=== PATIENT | female | born 1980 | race Caucasian/White ===

== ENCOUNTER 2017-07-09 16:22 | Emergency (ER) | payer OTHER ==
[~2017-07-09] VITALS: Ht 167.6 cm; Wt 57.5 kg
[~2017-07-09 16:22] MED LIST: HYDR-3498 PO; LORA-441 PO; METH500T8 PO
[2017-07-09 16:25] VITALS: Ht 167.6 cm; Wt 57.5 kg
[2017-07-09] MEDS ORDERED: ONDANSETRON 4 MG INJ IV STA (17:10)
[2017-07-09] MEDS ORDERED: morphine 4 MG/ML VIAL IV STA ×2 (17:10→20:51)
--- NOTE | 2017-07-09 17:48 | RADRPT ---
PROCEDURE: US Abdomen (right upper quadrant). CLINICAL INDICATION: Right upper quadrant abdomen pain. TECHNIQUE: Multiple real-time longitudinal and transverse images of the right upper quadrant of th e abdomen were acquired utilizing a curved array transducer. Images were reviewed on a high-resoluti on PACS workstation. COMPARISON: None FINDINGS: The liver is normal in size and normal in echogenicity. There is no focal hepatic lesion. Color Doppler and pulsed Doppler sonography demonstrate normal a ntegrade flow in the portal vein. The gallbladder is normal with no stones or wall thickening. There is no pericholecystic fluid tressa ection. The bile ducts are normal with the common bile duct measuring 3.5 mm in diameter. The visualized portions of the pancreas are unremarkable with obscuration of the tail of the pancrea s. No free fluid is present. The right kidney measures 9.8 x 4.9 x 4.8 cm. There is normal echogenicity of the right kidney. T here is no perinephric fluid collection. No hydronephrosis, mass, or calculus is seen. IMPRESSION: 1. Unremarkable right upper quadrant abdomen ultrasound. RPTAT: QQ .Smith Loza MD, Date Time Electronically viewed and signed by .Smith Loza MD, on 07/09/2017 17:48 .R/
[2017-07-09 17:58] LABS: BASOPHILS % 0.4 % (0.0-2.0); EOSINOPHILS # 0.1 10^3/ul (0.0-0.5); EOSINOPHILS % 0.7 % (0.0-7.0); HEMATOCRIT 39.7 % (37.0-47.0); HEMOGLOBIN 12.7 g/dl (12.0-16.0); LYMPHOCYTES # 1.2 10^3/ul (0.8-2.9); MEAN CORPUSCULAR HEMOGLOBIN 28.9 pg (29.0-33.0); MEAN CORPUSCULAR VOLUME 90.4 fl (82.0-101.0); MEAN PLATELET VOLUME 9.1 fl (7.4-10.4); MONOCYTE # 0.9 10^3/ul (0.3-0.9); MONOCYTES % 8.3 % (0.0-11.0); NEUTROPHIL # 8.6 10^3/ul (1.6-7.5); NEUTROPHILS % 79.3 % (39.0-77.0); PLATELET COUNT 379 10^3/UL (140-415); RED BLOOD COUNT 4.39 10^6/ul (4.20-5.40); RED CELL DISTRIBUTION WIDTH 14.6 % (11.5-14.5); WHITE BLOOD COUNT 10.9 10^3/ul (4.8-10.8)
[2017-07-09 18:07] LABS: ADD UMIC YES; UR ASCORBIC ACID NEGATIVE (NEGATIVE); UR BILIRUBIN (Dip) NEGATIVE (NEGATIVE); UR BLOOD (Dip) 2+ mg/dL (NEGATIVE); UR CLARITY CLOUDY (CLEAR); UR COLOR YELLOW (YELLOW); UR GLUCOSE (Dip) NEGATIVE (NEGATIVE); UR KETONES (Dip) NEGATIVE (NEGATIVE); UR LEUKOCYTE ESTERASE (Dip) 3+ Leu/ul (NEGATIVE); UR MUCUS FEW /HPF (NONE SEEN); UR NITRITE (Dip) NEGATIVE (NEGATIVE); UR RBC 64 /HPF (0-5); UR SPECIFIC GRAVITY (Dip) 1.025 (1.003-1.030); UR SQUAMOUS EPITHELIAL CELL FEW /HPF (FEW); UR TOTAL PROTEIN (Dip) 1+ mg/dl (NEGATIVE); UR UROBILINOGEN (Dip) NEGATIVE (NEGATIVE)
[2017-07-09 18:17] LABS: ALBUMIN 4.4 g/dl (3.3-4.9); ALBUMIN/GLOBULIN RATIO 1.18; BILIRUBIN,INDIRECT 0.2 mg/dl (0-1.1); BILIRUBIN,TOTAL 0.2 mg/dl (0.2-1.3); CALCIUM 8.7 mg/dl (8.4-10.2); CREATININE 0.59 mg/dl (0.44-1.00); POTASSIUM 5.5 mmol/L (3.5-5.1); TOTAL PROTEIN 8.1 g/dl (6.1-8.1)
[2017-07-09] MEDS ORDERED: SOD CHLORIDE 0.9% 1,000 ML IV ONE (18:33)
[2017-07-09 18:35] LABS: D-DIMER 1175.8 ng/ml (<460)
--- NOTE | 2017-07-09 18:42 | RADRPT ---
PROCEDURE: XR Chest. CLINICAL INDICATION: Abdominal pain. TECHNIQUE: Single frontal view. COMPARISON: None. FINDINGS: There is mild left basilar atelectasis. The lungs are otherwise clear. The heart size is normal. There is no pleural effusion. There is no pneumothorax. IMPRESSION: 1. Mild left basilar atelectasis. 2. Otherwise unremarkable chest radiograph. RPTAT: QQ .Smith Loza MD, MD Date Time Electronically viewed and signed by .Smith Loza MD, MD on 07/09/2017 18:42 .R/
[2017-07-09] MEDS ORDERED: CEFTRIAXONE 1 GM/50 ML (PMX) 50 ML IVPB ONE (19:00)
[2017-07-09] MEDS ORDERED: IOHEXOL 100 ML ONE (19:35)
[2017-07-09] MEDS ORDERED: SOD CHLORIDE 0.9% 100 ML ONE (19:35)
[2017-07-09] MEDS ORDERED: IOHEXOL 350MG/ML 50 ML BTL ONE (19:35)
--- NOTE | 2017-07-09 19:48 | ERD ---
ER Documentation Chief Complaint Chief Complaint Complains of right upper quadrant abdominal pain (CARMELLA CHANCE MD) HPI 77-year-old female presents with right upper quadrant abdominal pain sudden onset this morning. Denies any inciting event such as eating. She possibly felt warm but did not have a measured fever. She denies any vomiting. She denies any diarrhea. She also has dysuria. She denies any flank pain or lower abdominal pain. Patient is a history of kidney stones remotely but that pain was different. Denies any shortness of breath or leg swelling. (CARMELLA CHANCE MD) ROS All systems reviewed and are negative except as per history of present illness. (CARMELLA CHANCE MD) Medications Home Meds Active Scripts Docusate Sodium* (Colace*) 100 Mg Capsule, 100 MG PO BID, #60 CAP Prov:ARNULFO VELAZQUEZ PA-C 07/09/17 Magnesium Citrate* (Magnesium Citrate*) 296 Ml Solution, 296 ML PO ONCE, #1 BOTTLE Prov:ARNULFO VELAZQUEZ PA-C 07/09/17 Tramadol Hcl* (Ultram*) 50 Mg Tablet, 50 MG PO Q6H Y for PAIN, #15 TAB Prov:CARMELLA CHANCE MD 07/09/17 Ibuprofen* (Motrin*) 600 Mg Tab, 600 MG PO Q6H Y for PAIN, #15 TAB Prov:CARMELLA CHANCE MD 07/09/17 Cephalexin* (Cephalexin*) 500 Mg Capsule, 500 MG PO Q6 for 10 Days, #40 CAP Prov:CARMELLA CHANCE MD 07/09/17 Reported Medications Methocarbamol* (Methocarbamol*) 500 Mg Tablet, 500 MG PO BID, TAB 10/05/14 Hydrocodone Bit-Acetaminophen* ([place]*) 5-325 Mg Tab, 1 TAB PO Q4H, TAB 10/05/14 Lorazepam* (Ativan*) 0.5 Mg Tablet, 0.5 MG PO HS Y for SLEEP, TAB 10/05/14 Allergies Allergies: Coded Allergies: No Known Allergy (Unverified , 10/05/14) PMhx/Soc History of Surgery: No Anesthesia Reaction: No Hx Neurological Disorder: No Hx Respiratory Disorders: No Hx Cardiac Disorders: No Hx Psychiatric Problems: No Hx Miscellaneous Medical Probl: No Hx Alcohol Use: No Hx Substance Use: No Hx Tobacco Use: No (CARMELLA CHANCE MD) Physical Exam Vitals Vital Signs Date Time Temp Pulse Resp B/P Pulse Ox O2 Delivery O2 Flow Rate FiO2 07/09/17 20:54 98.3 93 17 118/71 99 Room Air 07/09/17 16:25 98.6 104 20 145/86 100 (ARNULFO VELAZQUEZ PA-C) Physical Exam Const: [] Alert, uncomfortable due to pain. Head: Atraumatic Eyes: Normal Conjunctiva ENT: Normal External Ears, Nose and Mouth. Neck: Full range of motion..~ No meningismus. Resp: Clear to auscultation bilaterally Cardio: Regular rate and rhythm, no murmurs Abd: Soft, mostly in the right upper quadrant abdomen. non distended. Normal bowel sounds no CVA tenderness. Skin: No petechiae or rashes Back: No midline or flank tenderness Ext: No cyanosis, or edema Neur: Awake and alert Psych: Normal Mood and Affect (CARMELLA CHANCE MD) Result Diagram: 07/09/17172907/09/17 1730 Results 24 hrs Laboratory Tests Test 07/09/17 17:30 07/09/17 17:32 07/09/17 18:05 White Blood Count 10.910^3/ul Red Blood Count 4.3910^6/ul Hemoglobin 12.7g/dl Hematocrit 39.7% Mean Corpuscular Volume 90.4fl Mean Corpuscular Hemoglobin 28.9pg Mean Corpuscular Hemoglobin Concent 32.0g/dl Red Cell Distribution Width 14.6% Platelet Count 64569^3/UL Mean Platelet Volume 9.1fl Neutrophils % 79.3% Lymphocytes % 11.0% Monocytes % 8.3% Eosinophils % 0.7% Basophils % 0.4% Nucleated Red Blood Cells % 0.0/100WBC Neutrophils # 8.610^3/ul Lymphocytes # 1.210^3/ul Monocytes # 0.910^3/ul Eosinophils # 0.110^3/ul Basophils # 0.010^3/ul Nucleated Red Blood Cells # 0.010^3/ul Sodium Level 137mmol/L Potassium Level 5.5mmol/L Chloride Level 100mmol/L Carbon Dioxide Level 23mmol/L Anion Gap 20 Blood Urea Nitrogen 10mg/dl Creatinine 0.59mg/dl Glucose Level 131mg/dl Calcium Level 8.7mg/dl Total Bilirubin 0.2mg/dl Direct Bilirubin 0.00mg/dl Indirect Bilirubin 0.2mg/dl Aspartate Amino Transf (AST/SGOT) 50IU/L Alanine Aminotransferase (ALT/SGPT) 22IU/L Alkaline Phosphatase 88IU/L Total Protein 8.1g/dl Albumin 4.4g/dl Globulin 3.70g/dl Albumin/Globulin Ratio 1.18 Lipase 45U/L Urine Color YELLOW Urine Clarity CLOUDY Urine pH 5.0 Urine Specific [place] 1.025 Urine Ketones NEGATIVEmg/dL Urine Nitrite NEGATIVEmg/dL Urine Bilirubin NEGATIVEmg/dL Urine Urobilinogen NEGATIVEmg/dL Urine Leukocyte Esterase 3+Kimberly/ul Urine Microscopic RBC 64/HPF Urine Microscopic WBC > 182/HPF Urine Squamous Epithelial Cells FEW/HPF Urine Mucus FEW/HPF Urine Hemoglobin 2+mg/dL Urine Glucose NEGATIVEmg/dL Urine Total Protein 1+mg/dl D-Dimer 1175.80ng/ml D-Dimer Comment Current Medications Medications (Trade) Dose Ordered Sig/Michael Route PRN Reason Start Time Stop Time Status Last Admin Dose Admin Morphine Sulfate (morphine) 4 mg ONCE STAT IV 07/09/17 17:10 07/09/17 17:12 DC 07/09/17 17:26 Ondansetron HCl 4 mg 4 mg ONCE STAT IV 07/09/17 17:10 07/09/17 17:12 DC 07/09/17 17:26 Ceftriaxone Sodium 50 ml @ 100 mls/hr ONCE ONCE IVPB 07/09/17 19:00 07/09/17 19:29 DC 07/09/17 18:50 Sodium Chloride (NS) 1,000 ml @ 0 mls/hr Q0M ONCE IV 07/09/17 18:33 07/09/17 18:38 DC 07/09/17 18:50 IV Flush 10 ml 10 ml STK-MED ONCE .ROUTE 07/09/17 19:35 07/09/17 19:36 DC 07/09/17 20:26 Sodium Chloride 100 ml @ ud STK-MED ONCE .ROUTE 07/09/17 19:35 07/09/17 19:36 DC 07/09/17 20:27 Iohexol (Omnipaque) 100 ml @ ud STK-MED ONCE .ROUTE 07/09/17 19:35 07/09/17 19:36 DC 07/09/17 20:27 Iohexol (Omnipaque 350mg/ ml) 50 ml STK-MED ONCE .ROUTE 07/09/17 19:35 07/09/17 19:36 DC 07/09/17 20:28 Morphine Sulfate (morphine) 4 mg ONCE STAT IV 07/09/17 20:51 07/09/17 20:52 DC 07/09/17 20:57 DIAGNOSTIC IMAGING REPORT Patient: TANJA GARCIA : 1980 Age: 37 Sex: F MR #: [id number] DOS: 07/09/17 1854 Ordering MD: CARMELLA CHANCE MD Location: [facility] Room/Bed: PROCEDURE: CT Chest with IV contrast. CLINICAL INDICATION: Shortness of breath TECHNIQUE: CT scan of the chest was performed on a multidetector scanner. The patient was scanned following the uncomplicated intravenous administration of 110 cc of [id number] contrast. 3D, coronal and sagittal reformatted images were obtained from the axial source images. Images were reviewed on a high-resolution PACS workstation. The total exam CTDlvol = 33 be mGy and DLP = 217 mGy-cm. One of the following 3 dose reduction techniques were used: Automated exposure control; adjustment of the mA and/or kV according to patient size; or use of iterative reconstruction technique. DICOM images are available. COMPARISON: Chest x-ray 07/09/2017 FINDINGS: No filling defects are identified within the pulmonary arteries to suggest pulmonary artery thrombosis. Thoracic aorta is normal caliber without aneurysm or dissection. There is no mediastinal or hilar lymphadenopathy or mass. Heart is normal size. No pericardial fluid or thickening. There is mild dependent atelectasis. No focal infiltrate. There is no pleural effusion. There is no pneumothorax. There are no fractures. A intact right breast implant is present. Left breast implant is collapsed. Imaging obtained through the upper abdomen reveals no acute abnormality. IMPRESSION: 1. No evidence for pulmonary embolus. 2. No aortic aneurysm or dissection. 3. Mild dependent atelectasis. 4. Ruptured/collapsed left breast implant. RPTAT: HMVK .Norman Pruett MD, Date Time Electronically viewed and signed by .Norman Pruett MD, MD on 07/09/2017 20:57 .K/ CC: CARMELLA CHANCE MD DIAGNOSTIC IMAGING REPORT Patient: TANJA GARCIA : 1980 Age: 37 Sex: F MR #: [id number] DOS: 07/09/17 2106 Ordering MD: ARNULFO VELAZQUEZ PA-C Location: [facility] Room/Bed: PROCEDURE: CT Abdomen and Pelvis without contrast. CLINICAL INDICATION: Pain. TECHNIQUE: CT scan of the abdomen and pelvis was performed on a multidetector slice CT scanner. No intravenous contrast material was utilized. Sagittal and coronal reformatted images were obtained from the axial source images. Images were reviewed on a high-resolution PACS workstation. Exam CTDlvol = 7.6 mGy and DLP = 365 Gy-cm. One of the following 3 dose reduction techniques were used: Automated exposure control; adjustment of the mA and/or kV according to patient size; or use of iterative reconstruction technique. DICOM images are available. COMPARISON: CT chest 07/09/2017. FINDINGS: There is contrast material within the renal collecting system and distended urinary bladder on the recent CT of the chest. Kidneys are normal in appearance without hydronephrosis or identifiable calculus.. There is no perinephric collection. Ureters are of normal caliber and without evidence for an obstructing calculus The urinary bladder is moderately distended and otherwise unremarkable. An IUD is present within the uterus. Ovaries are not well characterized. There is no obstruction or ileus. There is a abundant stool stool predominately in the right and transverse colon. The appendix is normal appearance without evidence for appendicitis.. There is no evidence for diverticulitis. There is no free fluid. The liver is overall normal in size. No intrahepatic lesions are identified. The gallbladder is normal in appearance. There is no definite biliary ductal dilation. Pancreas is normal in appearance. The spleen is unremarkable. There are no adrenal masses. The aorta is normal caliber. Limited evaluation of the lung bases demonstrates bibasilar atelectasis. Right breast implant is visualized. Collapsed left breast implant is present. The bones are unremarkable. IMPRESSION: 1. Residual contrast material within the renal collecting system from recent CT of the chest. No obstructive uropathy. Distended urinary bladder. 2. Abundant stool throughout the right and transverse colon compatible with constipation. No definite bowel obstruction or ileus. 3. No evidence for appendicitis or diverticulitis. 4. IUD within uterus. Ovaries not well characterized. The 5 bibasilar atelectasis. Redemonstrated right breast implant and collapsed less breast implant. 5. Otherwise negative. RPTAT: HMVK .Norman Pruett MD, MD Date Time Electronically viewed and signed by .Norman Pruett MD, MD on 07/09/2017 22:53 .K/ CC: ARNULFO VELAZQUEZ PA-C (ARNULFO VELAZQUEZ PA-C) Procedures/MDM Urine shows positive white blood cells and leukocyte Estrace was sent for culture. HCG is negative. CBC shows white blood count of 10.9. CMP shows potassium otherwise no acute findings. Suspect artifactual elevated potassium or hemolysis given no comorbidities. Chest X-ray 1V Interpreted by me: Soft Tissue: No acute abnormalities Bones: No acute abnormalities Mediastinum/Cardiac Silhouette/Lungs: [No acute abnormalities] impression- no acute findings in 1 view chest x-ray Right upper quadrant ultrasound read as normal. Given morphine 4 mg IV and Zofran 4 mg IV. Patient was given Rocephin 1 g IV after review of urinalysis. Patient presents with signs of UTI and right upper quadrant pain of uncertain etiology without flank pain. Urine sent for gonorrhea and chlamydia results pending. There are no signs of appendicitis, hepatobiliary disease, acute abdomen currently. D-dimer was ordered given possible right lower chest pain as cause of right upper quadrant pain and is elevated at 1100. CT angiogram chest pending given the uncertain cause of right upper quadrant pain and elevated d-dimer. Case will be signed out to YANNICK Velazquez and supervising ER physician. (CARMELLA CHANCE MD) 37-year-old female comes emergency department for right upper quadrant abdominal pain patient was signed out to me. CT pulmonary angiogram is negative for pulmonary embolus. She continues to have abdominal pain, CT abdomen pelvis disorder, there is significant constipation to the right and sigmoid colon. She does not have any clinical signs of obstruction, volvulus. No evidence of acute appendicitis. The patient was given magnesium citrate and Colace at her prescriptions. She was advised to avoid narcotics as it may exacerbate her constipation. (ARNULFO VELAZQUEZ PA-C) Departure Diagnosis: Primary Impression: Abdominal pain Abdominal location: right upper quadrant Qualified Code: R10.11 - Right upper quadrant abdominal pain Additional Impressions: UTI (urinary tract infection) Urinary tract infection type: acute cystitis Constipation Condition: Stable CARMELLA CHANCE MD Jul 09, 2017 19:48 ARNULFO VELAZQUEZ PA-C Jul 09, 2017 23:11
[2017-07-09] MEDS ORDERED: CEPH500C PO (19:50)
[2017-07-09] MEDS ORDERED: TRAM-40 PO (19:50)
[2017-07-09] MEDS ORDERED: IBUP-1542 PO (19:50)
[2017-07-09 20:54] VITALS: BP 118/71; PULSE 93; RESP 17; TEMP 98.3
--- NOTE | 2017-07-09 20:57 | RADRPT ---
PROCEDURE: CT Chest with IV contrast. CLINICAL INDICATION: Shortness of breath TECHNIQUE: CT scan of the chest was performed on a multidetector scanner. The patient was scanned following the uncomplicated intravenous administration of 110 cc of [id number] contrast. 3D, cor onal and sagittal reformatted images were obtained from the axial source images. Images were reviewe d on a high-resolution PACS workstation. The total exam CTDlvol = 33 be mGy and DLP = 217 mGy-cm. On e of the following 3 dose reduction techniques were used: Automated exposure control; adjustment of the mA and/or kV according to patient size; or use of iterative reconstruction technique. DICOM deysi ges are available. COMPARISON: Chest x-ray 07/09/2017 FINDINGS: No filling defects are identified within the pulmonary arteries to suggest pulmonary artery thrombos is. Thoracic aorta is normal caliber without aneurysm or dissection. There is no mediastinal or hi lar lymphadenopathy or mass. Heart is normal size. No pericardial fluid or thickening. There is mild dependent atelectasis. No focal infiltrate. There is no pleural effusion. There is no pneumothorax. There are no fractures. A intact right breast implant is present. Left breast implant is collapsed. Imaging obtained through the upper abdomen reveals no acute abnormality. IMPRESSION: 1. No evidence for pulmonary embolus. 2. No aortic aneurysm or dissection. 3. Mild dependent atelectasis. 4. Ruptured/collapsed left breast implant. RPTAT: HMVK .Norman Pruett MD, MD Date Time Electronically viewed and signed by .Norman Pruett MD, MD on 07/09/2017 20:57 .K/
--- NOTE | 2017-07-09 22:54 | RADRPT ---
PROCEDURE: CT Abdomen and Pelvis without contrast. CLINICAL INDICATION: Pain. TECHNIQUE: CT scan of the abdomen and pelvis was performed on a multidetector slice CT scanner. No intravenous contrast material was utilized. Sagittal and coronal reformatted images were obtained fr om the axial source images. Images were reviewed on a high-resolution PACS workstation. Exam CTDlvol = 7.6 mGy and DLP = 365 Gy-cm. One of the following 3 dose reduction techniques were used: Automate d exposure control; adjustment of the mA and/or kV according to patient size; or use of iterative re construction technique. DICOM images are available. COMPARISON: CT chest 07/09/2017. FINDINGS: There is contrast material within the renal collecting system and distended urinary bladder on the r ecent CT of the chest. Kidneys are normal in appearance without hydronephrosis or identifiable calc ulus.. There is no perinephric collection. Ureters are of normal caliber and without evidence for an obstructing calculus The urinary bladder is moderately distended and otherwise unremarkable. An IUD is present within the uterus. Ovaries are not well characterized. There is no obstruction or ileus. There is a abundant stool stool predominately in the right and tra nsverse colon. The appendix is normal appearance without evidence for appendicitis.. There is no ev idence for diverticulitis. There is no free fluid. The liver is overall normal in size. No intrahepatic lesions are identified. The gallbladder is norm al in appearance. There is no definite biliary ductal dilation. Pancreas is normal in appearance. Th e spleen is unremarkable. There are no adrenal masses. The aorta is normal caliber. Limited evaluation of the lung bases demonstrates bibasilar atelectasis. Right breast implant is vis ualized. Collapsed left breast implant is present. The bones are unremarkable. IMPRESSION: 1. Residual contrast material within the renal collecting system from recent CT of the chest. No ob structive uropathy. Distended urinary bladder. 2. Abundant stool throughout the right and transverse colon compatible with constipation. No defini te bowel obstruction or ileus. 3. No evidence for appendicitis or diverticulitis. 4. IUD within uterus. Ovaries not well characterized. The 5 bibasilar atelectasis. Redemonstrated r ight breast implant and collapsed less breast implant. 5. Otherwise negative. RPTAT: HMVK .Norman Pruett MD, MD Date Time Electronically viewed and signed by .Norman Pruett MD, MD on 07/09/2017 22:53 .K/
[2017-07-09] MEDS ORDERED: DOCU-144 PO (23:03)
[2017-07-09] MEDS ORDERED: MAGN296S40 PO (23:03)
== END 2017-07-09 23:09 | disposition home or self-care (01) ==
LOC: FTE 16:22
DX: N30.00 Acute cystitis without hematuria (principal); K59.00 Constipation, unspecified
CPT/HCPCS: 36415; 71010; 71275; 74176; 76705; 80053; 81001; 83690; 85025; 85378; 87086; 87591; 96365; 96375; 96376; J0696; J2270; J2405; J7030; Q9967; Z7502; Z7610

== ENCOUNTER 2018-10-18 00:05 | Emergency (ER) | payer SELFPAY ==
[~2018-10-18] VITALS: Wt 58.5 kg
[~2018-10-18 00:05] MED LIST changes: +CEPH500C PO; +DOCU-144 PO; +IBUP-1542 PO; +MAGN296S40 PO; +TRAM50TA PO
[2018-10-18 00:07] VITALS: BP 121/68; PULSE 133; RESP 22
== END 2018-10-18 02:58 | disposition left against medical advice (07) ==
LOC: FTE 00:05
DX: Z53.21 Procedure and treatment not carried out due to patient leaving prior to being seen by health care provider (principal)
CPT/HCPCS: 93005